=== PATIENT | female | born 1990 | race Caucasian/White ===

== ENCOUNTER 2020-10-01 14:55 | Emergency (ER) | payer MEDICAID ==
[~2020-10-01] VITALS: Ht 175.3 cm; Wt 136.1 kg
[2020-10-01] MEDS ORDERED: PROM5SYR PO (17:19)
[2020-10-01] MEDS ORDERED: BENZ200C53 PO (17:19)
[2020-10-01] MEDS ORDERED: ALBU8HFA4 INH (17:19)
--- NOTE | 2020-10-01 17:33 | NUR ---
Gave pt RX and d/c instructions, pt verbalized understanding.
== END 2020-10-01 17:40 | disposition home or self-care (01) ==
LOC: ER 14:55
DX: J20.9 Acute bronchitis, unspecified (principal); E66.01 Morbid (severe) obesity due to excess calories; Z68.41 Body mass index [BMI] 40.0-44.9, adult; R03.0 Elevated blood-pressure reading, without diagnosis of hypertension; Z20.822 Contact with and (suspected) exposure to COVID-19
CPT/HCPCS: 71045; A4663

== ENCOUNTER 2021-05-17 01:37 | Emergency (ER) | payer MEDICAID, OTHER ==
[~2021-05-17] VITALS: Ht 180.3 cm; Wt 136.1 kg
[~2021-05-17 01:37] MED LIST: ALBU8HFA4 INH; BENZ200C53 PO; PROM5SYR PO
[2021-05-17] MEDS ORDERED: ONDANSETRON 4 MG/2 ML VIAL IV ONE (03:00)
[2021-05-17] MEDS ORDERED: IV NORMAL SALINE 1000 ML BAG IV ONE (03:00)
--- NOTE | 2021-05-17 03:03 | NUR ---
MD at bedside for MSE>
[2021-05-17] MEDS ORDERED: MORPHINE SULFATE 4 MG/1 ML DISP.SYRIN IV ONE (03:15)
[2021-05-17 03:23] LABS: HEMATOCRIT 39.7 % (31.2-41.9); MEAN CORPUSCULAR HEMOGLOBIN 26.2 uug (24.7-32.8); MEAN CORPUSCULAR VOLUME 78.2 fL (75.5-95.3); PLATELET COUNT (AUTO) 422 K/uL (179-408)
[2021-05-17 03:28] LABS: BILIRUBIN,DIRECT 0.1 mg/dL (0.0-0.2); BILIRUBIN,TOTAL 0.6 mg/dL (0.2-1.0); CREATININE 0.9 mg/dL (0.6-1.3); POTASSIUM 3.6 mmol/L (3.5-5.1); TOTAL PROTEIN, SERUM 9.2 g/dL (6.4-8.2)
[2021-05-17] MEDS ORDERED: ONDANSETRON 4 MG/2 ML VIAL ONE (03:32)
--- NOTE | 2021-05-17 03:45 | NUR ---
Morphine 2mg wasted at bin.
[2021-05-17] MEDS ORDERED: MORPHINE SULFATE 4 MG/1 ML DISP.SYRIN ONE (03:47)
[2021-05-17] MEDS ORDERED: IV NS 1000 ML 1,000 ML IV ONE (04:45)
[2021-05-17] MEDS ORDERED: HYDR-4209 PO (06:08)
[2021-05-17] MEDS ORDERED: ONDA4TAB11 PO (06:08)
--- NOTE | 2021-05-17 06:15 | NUR ---
IV removed. Catheter intact and site benign. Pressure and 4x4 gauze applied to site. No bleeding noted.
[2021-05-17 06:20] VITALS: BP 105/51
--- NOTE | 2021-05-17 06:22 | NUR ---
Patient discharged to home with mother via private vehicle in stable condition. Written and verbal after care instructions given. Patient verbalizes understanding of instructions. Stressed follow up or return to ER for worsening s/s. VSS. NAD.
== END 2021-05-17 06:20 | disposition home or self-care (01) ==
LOC: ER 01:40
DX: R10.10 Upper abdominal pain, unspecified (principal); R11.10 Vomiting, unspecified; R00.0 Tachycardia, unspecified; Z90.49 Acquired absence of other specified parts of digestive tract; D72.829 Elevated white blood cell count, unspecified; D75.839 Thrombocytosis, unspecified; R19.7 Diarrhea, unspecified
CPT/HCPCS: 80048; 80076; 83605; 83690; 84702; 85025; 96361; 96374; 96375; 99284; J2270; J2405; A4663; J7030

== ENCOUNTER 2021-06-17 23:00 | Emergency (ER) | payer OTHER ==
[~2021-06-17] VITALS: Ht 170.2 cm; Wt 140.6 kg
[~2021-06-17 23:00] MED LIST changes: +HYDR-4209 PO; +ONDA4TAB11 PO
--- NOTE | 2021-06-17 23:11 | NUR ---
Dr Gibson at bedside, MSE in progress.
[2021-06-18] MEDS ORDERED: predniSONE 20 MG TABLET PO ONE
[2021-06-18] MEDS ORDERED: PRED20TA PO ×2 (00:18→00:21)
[2021-06-18] MEDS ORDERED: GUAI5SYR4 PO ×2 (00:18→00:21)
[2021-06-18] MEDS ORDERED: AZIT250T13 PO (00:21)
[2021-06-18] MEDS ORDERED: GUAIFENESIN/CODEINE 5 ML LIQUID UDC PO ONE (00:30)
[2021-06-18] MEDS ORDERED: predniSONE 20 MG TABLET ONE (00:48)
[2021-06-18] MEDS ORDERED: GUAIFENESIN/CODEINE 5 ML LIQUID UDC ONE (00:48)
--- NOTE | 2021-06-18 01:07 | NUR ---
Patient discharged to home in stable condition. Written and verbal after care instructions given. Patient verbalizes understanding of instructions. Stressed follow up or return to ER for worsening s/s. pt ambulated with steady gait. denies pain. no chest pain. AOx4. picked up by mother.
[2021-06-18 01:08] VITALS: BP 139/85
== END 2021-06-18 01:10 | disposition home or self-care (01) ==
LOC: ER 23:00
DX: J20.9 Acute bronchitis, unspecified (principal); Z20.822 Contact with and (suspected) exposure to COVID-19; E66.01 Morbid (severe) obesity due to excess calories; Z68.42 Body mass index [BMI] 45.0-49.9, adult; Z90.49 Acquired absence of other specified parts of digestive tract; R05.9 Cough, unspecified; Z87.09 Personal history of other diseases of the respiratory system
CPT/HCPCS: 71046; 87400; 87426; 99284; J7512; A4663